=== PATIENT | female | born 1955 | race Caucasian/White ===

== ENCOUNTER → 2017-04-25 | Outpatient (CLI) | payer BC ==
--- NOTE | 2017-04-25 12:46 | MAMMOGRAPHY REPORT ---
BILATERAL DIGITAL SCREENING MAMMOGRAM WITH CAD: 04/25/2017 CLINICAL HISTORY: Routine screening. Patient has no complaints. TECHNIQUE: Current study was also evaluated with a Computer Aided Detection (CAD) system. Bilateral CC and MLO views were obtained. COMPARISON: Comparison is made to exams dated: 04/19/2016 mammogram, 04/14/2015 mammogram, 04/08/2014 m ammogram, 04/01/2013 mammogram, 03/19/2012 mammogram, and 03/15/2011 mammogram - [facility]. BREAST COMPOSITION: There are scattered areas of fibroglandular density in both breasts. FINDINGS: No suspicious masses, calcifications, or areas of architectural distortion are noted in ei ther breast. There has been no significant interval change compared to prior exams. Scattered bilater al benign-appearing calcifications are not significantly changed. IMPRESSION: ACR BI-RADS CATEGORY 2: BENIGN There is no mammographic evidence of malignancy. A 1 year screening mammogram is recommended. The pa tient will receive written notification of the results. Approximately 10% of breast cancers are not detected with mammography. A negative mammographic report should not delay biopsy if a clinically suggestive mass is present. Adela Xiong M.D. ah/:04/25/2017 12:20:07 Farm Equipment Maintenance Supervisor: Jessica MCDANIELS(Jim)(M), [facility] letter sent: Normal 1/2 BI-RADS Code: ACR BI-RADS Category 2: Benign
== END | disposition home or self-care (01) ==
LOC: C.MAMM 09:23
PROVIDERS: ATTEND Family Medicine
DX: Z12.31 Encounter for screening mammogram for malignant neoplasm of breast (principal)

== ENCOUNTER 2023-05-29 10:40 | Observation (INO) ==
--- NOTE | 2023-05-09 12:27 | PAT Medication Instructions ---
Medication Instructions Date of Service May 09, 2023 Home Medications calcium carbonate 600 mg-vitamin D3 10 mcg (400 unit) tablet (Calcium 600 + D(3)) 1 tab PO QAM cholecalciferol (vitamin D3) 25 mcg (1,000 unit) tablet (Vitamin D3) 25 mcg PO QAM diclofenac sodium 1 % topical gel 2 g topical QID PRN Pain famotidine 20 mg tablet 20 mg PO QAM hydrochlorothiazide 25 mg tablet 25 mg PO QAM losartan 25 mg tablet 25 mg PO QAM zriwjaejqvzh-smyifyjp-jraalro-folic acid 400 mcg-vit K1 20 mcg tablet (Women's 50 Plus Advanced) 1 tab PO QAM pantoprazole 40 mg tablet,delayed release 40 mg PO DAILY PRN Acid Reflux STOP taking 24 hours before surgery diclofenac sodium 1 % topical gel 2 g topical QID PRN Pain DO NOT take the morning of surgery calcium carbonate 600 mg-vitamin D3 10 mcg (400 unit) tablet (Calcium 600 + D(3)) 1 tab PO QAM cholecalciferol (vitamin D3) 25 mcg (1,000 unit) tablet (Vitamin D3) 25 mcg PO QAM hydrochlorothiazide 25 mg tablet 25 mg PO QAM losartan 25 mg tablet 25 mg PO QAM dopdlwajttml-troovwct-ltdorpd-folic acid 400 mcg-vit K1 20 mcg tablet (Women's 50 Plus Advanced) 1 tab PO QAM Take morning of surgery With a small sip of water, OTHERWISE NOTHING TO EAT OR DRINK AFTER MIDNIGHT: famotidine 20 mg tablet 20 mg PO QAM pantoprazole 40 mg tablet,delayed release 40 mg PO DAILY PRN Acid Reflux (if needed) Other Notes If you have any questions please call us at [phone] or [phone] or [phone] or [phone]
--- NOTE | 2023-05-10 07:47 | History & Physical Report ---
Date of Service May 10, 2023 date of surgery: 05/29/23 Procedure: Left Total Knee Arthroplasty Surgeon: Kin Petersen Assessment & Plan (1) Arthritis of knee, left: Plan: Presents for evaluation of continued left knee pain, she underwent viscosupplementation in April of last year with mild improvement. Since that time she had increased pain swelling and giving out. 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 We discussed treatment options at this point she would like to proceed with surgical intervention. Plan will be patient-matched Mari left total knee arthroplasty, we will plan on overnight stay at the hospital. We will follow-up 2 weeks after surgery sooner if she is having any issues The risks and benefits have been discussed including, but not limited to, risk of infection, nerve injury, stiffness, loss of motion, failure to improve, etc. Reasonable outcomes and options of treatment were discussed. An explanation of appropriate alternatives to the procedure that may be advantageous were discussed and their risks and benefits, as well as the risks and benefits of not proceeding with treatment. I offered to answer any additional inquiries concern ing the treatment involved. All the patient's questions were answered. The patient is agreeable, understanding of the treatment plan and alternatives, and wishes to proceed with the treatment plan. History of Present Illness Chief Complaint: left knee pain Primary Care Provider: Yajaira Hilario DO Elyse is a pleasant 67-year-old female who presented for preop evaluation prior to upcoming left total knee arthroplasty. She has had pain in his knee for many years now which is gradually worsening, she undergone previous viscosupplementation in the past with minimal improvement. She has tried oral anti-inflammatories as well as Tylenol without relief. This point time her pain is now affecting her daily activities including walks and using stairs. X-rays show advanced degenerative changes to the left knee. At this point time is failed conservative measures and wishes to proceed with a left total knee replacement Allergies Allergy/AdvReac Type Severity Reaction Status Date / Time lisinopril Allergy Intermediate Cough Verified 05/06/23 08:02 Home Medications Medication Instructions Recorded Confirmed Type calcium carbonate 600 mg-vitamin 1 tab PO QAM 05/06/23 05/06/23 History D3 10 mcg (400 unit) tablet (Calcium 600 + D(3)) cholecalciferol (vitamin D3) 25 25 mcg PO QAM 05/06/23 05/06/23 History mcg (1,000 unit) tablet (Vitamin D3) diclofenac sodium 1 % topical gel 2 g topical QID PRN Pain 05/06/23 05/06/23 History famotidine 20 mg tablet 20 mg PO QAM 05/06/23 05/06/23 History hydrochlorothiazide 25 mg tablet 25 mg PO QAM 05/06/23 05/06/23 History losartan 25 mg tablet 25 mg PO QAM 05/06/23 05/06/23 History dmouvjbtztvw-rbkfwylf-lpysetd-folic 1 tab PO QAM 05/06/23 05/06/23 History acid 400 mcg-vit K1 20 mcg tablet (Women's 50 Plus Advanced) pantoprazole 40 mg tablet,delayed 40 mg PO DAILY PRN Acid Reflux 05/06/23 05/06/23 History release Past Med/Surg History Medical History Arthritis GERD (gastroesophageal reflux disease) Hiatal hernia Hypertension Lower back pain trouble laying flat for long periods of time Surgical History H/O bilateral oophorectomy History of colonoscopy with polypectomy History of esophagogastroduodenoscopy (EGD) History of hysterectomy [place] teeth extracted Family History Father Diabetes Colon cancer Sister Diabetes Social History Smoking Status: Never smoker Second Hand Exposure: No; Do You Dip or Chew Tobacco: No; Tobacco Cessation Education Requested by Patient: No Hx Alcohol Use: No Hx Substance Use: No Preferred Language: Northern Irish Communication Ability: Effective Char Dust Cleaner And Salvager Required: No Beliefs That Will Affect Care: None Current Living Situation: Spouse and Family Other Information That Helps Us Care for You: No Feels Safe at Home: Yes Safety Concerns: Feels Safe At This Time Assistive Devices: Glasses Review of Systems Review of Systems: All systems reviewed & are unremarkable except as noted in HPI & below Constitutional: no fever, no chills and no sweats Respiratory: no cough and no dyspnea Cardiovascular: no chest pain, no dyspnea and no orthopnea Gastrointestinal: no abdominal pain, no nausea and no vomiting Musculoskeletal: as per Subjective / HPI Physical Exam Physical Exam: HT: 5ft WT: 79.38kg Constitutional: WD/WN, vitals as above no acute distress Respiratory: normal respiratory effort, lungs clear to auscultation no respiratory distress, no labored breathing and does not use accessory muscles Cardiovascular: RRR, no murmur, no edema Gastrointestinal (Abdomen): normal bowel sounds, soft, nontender, no hepatosplenomegaly Musculoskeletal: Knee: + knee abnormal to inspection (LEFT KNEE), + effusion (+1 effusion), + limited ROM of knee (ROM 0/3/110), + knee ROM with crepitation, + joint line tenderness (medial joint line) and + Jadyn's sign positive; no deformity, no skin erythema, no ecchymosis, no valgus laxity, no varus laxity, anterior drawer test negative, Ramiro's sign negative and pivot shift test negative Results & Data Results & Data Diagnostic Findings 4 views left knee show advanced degenerative changes to the left knee greatest medial compartment and patellofemoral joint with joint space narrowing osteophyte formation. AVN noted at the medial femoral condyle
--- NOTE | 2023-05-15 09:21 | Anesthesiology Consultation ---
Date of Service May 15, 2023 Assessment & Plan (1) Encounter for pre-operative examination: Chart Review Chart Review: Acceptable Risk for Surgery and Patient seen in Pre Admission Testing Pt currently scheduled as 23 hours observation. If surgeon decides to change patient to Same Day Joint, patient would be acceptable risk for TKA, pending patient is motivated, has good support and surgeon's office completes Same Day Joint Program preop requirements. Per PAT appt on 05/15/23, no recent Covid exposures, Covid related symptoms, or recent Covid positive tests. Will leave to surgeon's discretion if preop Covid testing needed Teaching & Discussion Pre-Anesthesia Teaching/Discussion Notes: Instructed NPO after midnight before surgery,except medications with 15 cc of water. Medication instructions provided according to the PAT guidelines. History Surgery Operation Date: 05/29/23 07:15 Proposed Procedures p Left Total Knee Arthroplasty - Kin Petersen DO Height/Weight Height: 5 ft Weight: 79.3 kg Allergies Allergy/AdvReac Type Severity Reaction Status Date / Time lisinopril Allergy Intermediate Cough Verified 05/06/23 08:02 Medications Home Medications Medication Instructions Recorded Confirmed Last Taken calcium carbonate 600 mg-vitamin 1 tab PO QAM 05/06/23 05/06/23 Unknown D3 10 mcg (400 unit) tablet (Calcium 600 + D(3)) cholecalciferol (vitamin D3) 25 25 mcg PO QAM 05/06/23 05/06/23 Unknown mcg (1,000 unit) tablet (Vitamin D3) diclofenac sodium 1 % topical gel 2 g topical QID PRN Pain 05/06/23 05/06/23 Unknown famotidine 20 mg tablet 20 mg PO QAM 05/06/23 05/06/23 Unknown hydrochlorothiazide 25 mg tablet 25 mg PO QAM 05/06/23 05/06/23 Unknown losartan 25 mg tablet 25 mg PO QAM 05/06/23 05/06/23 Unknown hxcxcqpatbgw-gtpmsxpw-umlcfzj-folic 1 tab PO QAM 05/06/23 05/06/23 Unknown acid 400 mcg-vit K1 20 mcg tablet (Women's 50 Plus Advanced) pantoprazole 40 mg tablet,delayed 40 mg PO DAILY PRN Acid Reflux 05/06/23 05/06/23 Unknown release Past Medical History Medical History (Updated 05/15/23 @ 14:28 by Faye Dalton PA-C) Arthritis GERD (gastroesophageal reflux disease) Well controlled and stable with meds Hiatal hernia Hypertension Lower back pain trouble laying flat for long periods of time Prediabetes Hgb A1C 6.1 on 05/15/23 Exercise / Class Metabolic Activity II 4-5 Yardwork/Stairs/Walk up hill (one flight of stairs - no chest pain or SOB ) Past Family History Family History Father Diabetes Colon cancer Sister Diabetes Past Surgical History Surgical History H/O bilateral oophorectomy History of colonoscopy with polypectomy History of esophagogastroduodenoscopy (EGD) History of hysterectomy [place] teeth extracted Past Anesthesia History No Hx of Anesthesia Complications and No Family Hx of Anesthesia Complications History of PONV No Hx of PONV and No Hx of Motion Sickness Social History Smoking Status: Never smoker Do You Dip or Chew Tobacco: No Hx Alcohol Use: No Hx Substance Use: No substance use type: does not use Review of Systems - Hx of snoring- no witnessed apnea - no sleep study Patient denies chest pain, shortness of breath, dyspnea on exertion, cough, wheezing, palpitations. No hx of seizures, stroke, [place]. No hx of blood clots or blood transfusions Physical Exam Vital Signs VITALS BP 155/84 P 81 TEMP 98.3 SP02 99% RES 16P Constitutional no acute distress ENMT Mouth: no TMJ clicking Thyromental Distance: > or= 3.5 Finger Breadths (3.5) Mallampati Class: I [place] to right front tooth Neck + short neck; neck extension not limited Respiratory normal respiratory effort; no respiratory distress Auscultation: lungs clear to auscultation bilaterally; no wheezes Cardiovascular Rate/Rhythm: regular rate and regular rhythm Heart Sounds: no murmur Vessels: no carotid bruit Musculoskeletal Spine: no pain with cervical ROM Extremities: extremities normal to inspection Psychiatric Orientation: alert Lab Results Anesthesia Preop Results Results Anesthesia Widget: WBC 7.54 K/ul (4.8-10.8) 05/15/23 Hgb 14.4 g/dl (12.0-16.0) 05/15/23 Hct 42.3 % (37.0-47.0) 05/15/23 Plt 282 K/uL (130-400) 05/15/23 Na 142 mmol/L (136-145) 05/15/23 K 4.1 mmol/L (3.5-5.1) 05/15/23 Cl 103 mmol/L (98-107) 05/15/23 CO2 30 mmol/L (21-32) 05/15/23 BUN 16 mg/dl (6-23) 05/15/23 Creat 0.66 mg/dl (0.6-1.2) 05/15/23 Glucose Level 99 mg/dl (70-99(Fasting)) 05/15/23 PT 10.3 Seconds (9.0-12.0) 05/15/23 PTT 27.5 Seconds (21.0-31.0) 05/15/23 INR 0.9 (0.9-1.1) 05/15/23 HA1c 6.1 % (4.5-5.6) H 05/15/23 Urine Color Yellow 05/15/23 Urine Appearance Clear (Clear) 05/15/23 Urine pH 8.0 (4.5-7.5) H 05/15/23 Urine Specific [place] 1.011 (1.000-1.030) 05/15/23 Urine Protein Negative (Negative) 05/15/23 Urine Glucose (UA) Negative (Negative) 05/15/23 Urine Ketones Negative (Negative) 05/15/23 Urine Blood Negative (Negative) 05/15/23 Urine Nitrite Negative (Negative) 05/15/23 Urine Bilirubin Negative (Negative) 05/15/23 Urine Urobilinogen Negative (Negative) 05/15/23 Urine Leukocyte Esterase Negative (Negative) 05/15/23 Blood Type O Negative 05/15/23 Antibody Screen NEGATIVE 05/15/23 Testing Electrocardiogram Date: 05/15/23 Findings: + NSR @ (75bpm ) and + no change from (Aug 09, 2004 per cardio ) Possible left atrial enlargement Chest X-Ray Date: 05/15/23 FINDINGS: No lines and tubes are seen. Calcified aortic knob is seen. The lungs are clear. No evidence of pleural effusion or pneumothorax. Degenerative changes are seen in the spine. IMPRESSION: No acute chest disease. Echocardiogram Date: 06/26/19 EF: 55-59% LV Function: normal RWMA: + none Other Findings: + diastolic dysfunction (Grade I ); no LVH Valvular Disease: + no significant valvular disease
[~2023-05-29 10:40] MED LIST: ACETAMINOPHEN 500 MG TAB PO SCH; BUPIVACAINE 0.25% PF 30 ML VIAL ONE; BUPIVACAINE 0.5 % 5 MG/1 ML PF 10ML VIAL ONE; CeleBREX 200 MG CAP PO SCH; FAMOTIDINE 20 MG TAB PO SCH; GABAPENTIN 300 MG CAP PO SCH; LR 500ML BOLUS, THEN 15ML/HR IV SCH; LR 60ML/HR IV SCH; METOCLOPRAMIDE HCL 10 MG TABLET PO SCH; ROPIVACAINE 0.5% HCL/PF 150 MG, BUPIVACAINE 0.75% MPF 20 ML, EPINEPHrine 30MG/30ML (OR ... INSTIL SCH; TRANEXAMIC ACID 1,000 MG **IV Intra-op IV SCH; TRANEXAMIC ACID 1,000 MG **IV Pre-op IV SCH; ceFAZolin 2000MG 2,000 MG/15 ML SYR IV SCH; dexAMETHasone 4 MG TAB PO SCH
--- NOTE | 2023-05-29 11:08 | History & Physical Bridge Note ---
Date of Service May 29, 2023 History & Physical Bridge Note I have examined the patient, reviewed the History & Physical and in the interval since the performance of the History & Physical I have noted the following changes of clinical significance: no changes noted
[2023-05-29] MEDS ORDERED: ORTHO JOINT ANESTHETIC ONE (13:04)
[2023-05-29] MEDS ORDERED: MIDAZOLAM HCL 1 MG/ML 2ML VIAL ONE ×2 (13:08)
[2023-05-29] MEDS ORDERED: ONDANSETRON INJ 2 MG/ML 2 ML VIAL ONE (13:46)
[2023-05-29] MEDS ORDERED: PROPOFOL IV EMULSION 10 MG/ML 20 ML VIAL IV ONE (13:46)
[2023-05-29] MEDS ORDERED: ePHEDrine sulfate 50 MG/ML AMP ONE (14:33)
--- NOTE | 2023-05-29 14:38 | Operative Report ---
Post Operative Report Pre & Post Diagnosis Operation Date: 05/29/23 12:15 Pre-Op Diagnosis: Left Knee Osteoarthritis Post-Op Diagnosis: Left Knee Osteoarthritis I identified the patient and participated in the time-out.: Yes Procedure Operation Date: 05/29/23 12:15 Actual Procedures p Left Total Knee Arthroplasty(Left)Utilizing Mari [employer] persona patient- matched total knee arthroplasty size femur 5 standard tibia C poly 10 mm patella 28 oval - Kin Petersen DO Surgeon Kin Petersen DO Farm Service Adviser Arnaud PALOMO Estimated Blood Loss 5 Findings Consistent with Post-Op Diagnosis Patient presents with severe end-stage tricompartmental DJD eburnated ohfu-ls-nbsf marginal osteophytes subchondral sclerosis with a large effusion Specimens Bone and cartilage Drains Medium bore Hemovac Anesthesia Type MAC Spinal Regional Complications none Disposition Accompanied Patient To Recovery: No Disposition: Recovery Room Indications Patient presents with severe end-stage tricompartmental DJD is failed attempted conservative management occluding physical therapy anti-inflammatories relative rest activity modification corticosteroid injection viscosupplementation Description of Procedure After proper prepping and draping of the left lower extremity anterior midline incision was made over the region of the extensor extensor mechanism after meticulous hemostasis was obtained and maintained in subcutaneous tissues a medial parapatellar incision was made The patella was subluxed lateralward the medial lateral gutter were cleaned from any hypertrophic synovitis and scar tissue of the distal femoral block was placed and the distal femoral osteotomy cut was made subsequently the chamfers anterior and posterior osteotomy cuts were made utilizing the 4-in-1 block the tibia was subsequently subluxed anteriorward medial and ateral meniscal remnants were excised in their entirety remnants of the anterior and posterior cruciate ligaments were excised in their entirety excellent exposure of the proximal tibia was obtained the tibial osteotomy guide was placed on the proximal tibial osteotomy cut was made once again the knee was irrigated with copious amounts of sterile saline solution the patella was subsequently everted lateralward thickened scar tissue around the patella was removed the patella was subsequently cut utilizing a freehand technique and was drilled prepared for final preparation and placement of patella socially flexion-extension gaps were checked and the equal and symmetric trials were placed to the appropriate femoral and tibial trials with poly-spacer being placed for equal flexion and extension gaps and full range of motion including extension to 0 and flexion to 140 the trial components after having been taken to recovery range of motion was subsequently removed meticulous hemostasis was obtained and maintained subsequently a knee block injection of joint cocktail including ropivacaine 0.5% 150 mg. Bupivacaine 0.5% epinephrine 1-200,030 mL's toradol 30 mg dexamethasone 4 mg ketamine 10 mg clonidine 100 micrograms normal saline solution 30 mg was infiltrated into the soft tissues of the posterior knee medial lateral gutters and periosteal synovium special attention was paid to protect neurovascular structures at all times subsequently trial components having been removed the knee was irrigated with sterile saline solution. debris was removed the proximal tibia was subsequently prepared and was made ready for the placement of the tibial component tibial component was also cemented and tamped into position the femoral component was subsequently placed and cemented in the position the patellar component was subsequently su ented in position because hemostasis once again obtained and maintained wound having been thoroughly irrigated with debridement and debridement lavage was performed as well as a medial parapatellar incision closed with #1 Vicryl in interrupted fashion subcutaneous was closed with #2 Vicryl skin was closed with skin clips. PA-C was necessary for prepping and drapping as well as wound closure of deep fascia Sub cutaneous tissue and skin and was necessary for the case. A sterile compressive dressing was placed patient was taken to recovery in stable condition of report dictated by Nicola I attest to the content of the Intraoperative Record and any orders documented therein. Any exceptions are noted below.Due to the complex nature of the procedure, the entire surgery was performed with the operational assistance of Arnaud PALOMO. The assistant womens volleyball coach, under direct supervision, was involved in the actual performance of all aspects of the surgical procedure including hemostasis, tissue retraction and incision, instrument management, patient positioning, and wound closure. I attest to the content of the Intraoperative Record and any orders documented therein. Any exceptions are noted below.
--- NOTE | 2023-05-29 15:29 | Anesthesiology Progress Note ---
Date of Service May 29, 2023 Anesthesia Post Procedure Vital Signs Vital Signs: Temp Pulse Resp BP Pulse Ox O2 Del Method 05/29/23 11:00 36.8 C 92 H 20 132/75 95 Room Air Transfer of Care Handoff Completed per policy Notes Mental Status: alert / awake / arousable and participated in evaluation Patient Amnestic to Procedure: Yes Nausea / Vomiting: adequately controlled Pain: adequately controlled Airway Patency, RR, SpO2: stable & adequate BP & HR: stable & adequate Hydration State: stable & adequate Neuraxial Anesthesia: was administered and sensory block is resolving Anesthetic Complications: no major complications apparent and Pt Satisfied with anesthetic care
--- NOTE | 2023-05-29 15:55 | XRay Report ---
LEFT KNEE 2 VIEWS History: Left total knee arthroplasty. Degenerative arthritis. Postop. FINDINGS: The patient is status post a left total knee arthroplasty. The hardware is intact. No fract ure or dislocation. Surgical drains are in place. IMPRESSION: Left total knee arthroplasty. No evidence for hardware complication. ACT 112: Negative or not required by law. Electronically signed by: Joshua Yates M.D. 05/29/2023 3:54 PM
[2023-05-29] MEDS ORDERED: ONDANSETRON INJ 2 MG/ML 2 ML VIAL IV PRN (16:13)
[2023-05-29] MEDS ORDERED: PANTOprazole 40 MG TAB PO PRN (16:13)
[2023-05-29] MEDS ORDERED: bisacodyL 10 MG SUPP PR PRN (16:13)
[2023-05-29] MEDS ORDERED: MAGNESIUM HYDROXIDE SUSP 30 ML UDC PO PRN (16:13)
[2023-05-29] MEDS ORDERED: diphenhydrAMINE 50 MG/ML VIAL IV PRN (16:13)
[2023-05-29] MEDS ORDERED: oxyCODONE HCL IR 5 MG TAB (IMMEDIATE RELEASE) PO PRN (16:13)
[2023-05-29] MEDS ORDERED: NALOXONE HCL 0.4 MG/1 ML VIAL/CARP IV PRN (16:13)
[2023-05-29] MEDS: SODIUM CHLORIDE 0.9% 1,000 ML IV SCH (17:46)
[2023-05-29] MEDS: ceFAZolin 2000MG 2,000 MG/15 ML SYR IV SCH (20:48)
[2023-05-29] MEDS: ASPIRIN 81 MG ECTAB PO SCH (20:49)
[2023-05-29] MEDS: DOCUSATE SODIUM 100 MG CAP PO SCH (20:49)
[2023-05-29] MEDS: ACETAMINOPHEN 500 MG TAB PO SCH (20:49)
[2023-05-29] MEDS ORDERED: SENNA 8.6 MG TAB PO SCH (21:00)
[2023-05-30] MEDS: SODIUM CHLORIDE 0.9% 1,000 ML IV SCH (03:49)
[2023-05-30] MEDS: ACETAMINOPHEN 500 MG TAB PO SCH ×2 (05:38→14:31)
[2023-05-30] MEDS: ceFAZolin 2000MG 2,000 MG/15 ML SYR IV SCH (05:38)
[2023-05-30 07:09] LABS: Hematocrit (blood only) 35.6 % (37.0-47.0); Mean Corpuscular Hemoglobin 28.3 pg (25.0-34.0); Mean Corpuscular Hgb Conc 33.7 g/dL (32.0-36.0); Mean Platelet Volume 9.1 fL (9.4-12.4); Platelet Count 248 K/uL (130-400); RDW Coefficient of Variation 13.1 % (11.5-14.5); RDW Standard Deviation 39.8 fL (36.4-46.3); Red Blood Count 4.24 M/uL (4.20-5.40); White Blood Count 14.75 K/ul (4.8-10.8)
[2023-05-30 07:35] LABS: BUN Creatinine Ratio 18.3 (10-20); Calcium 8.4 mg/dl (8.6-10.3); Creatinine Clr Calc Pharmacy 68.4 ml/min; Est GFR (Non-African American) 86.3 ml/min; Potassium 3.9 mmol/L (3.5-5.1)
[2023-05-30] MEDS: ASPIRIN 81 MG ECTAB PO SCH (08:07)
[2023-05-30] MEDS: DOCUSATE SODIUM 100 MG CAP PO SCH (08:07)
--- NOTE | 2023-05-30 08:21 | Orthopedic Progress Note ---
Date of Service May 30, 2023 Assessment & Plan (1) Status post left knee replacement: Plan: 68 yo female stable POD #1 s/p left TKA 1. Med management 2. DVT prophylaxis- ASA, SCDs 3. PT/OT 4. D/C planning- home w/ HH Admission and Anticipated Discharge Date Admission Date: May 29, 2023 Subjective Pt resting in bed, denies complaints, pain controlled Physical Exam Physical Exam: Dressing in place, hemovac and TERRA in place, toes mobile, NVI Results & Data Vital Signs (Past 12 Hours) Vital Signs Temp Pulse Resp BP BP Pulse Ox O2 Del Method 05/30/23 07:32 36.6 C 63 16 118/73 95 Room Air 05/30/23 03:10 36.4 C L 61 16 112/65 96 Room Air 05/29/23 23:00 36.4 C L 65 16 110/65 98 Room Air Laboratory Results 05/30/23 05/30/23 Range/Units 06:39 06:39 WBC 14.75 H (4.8-10.8) K/ul RBC 4.24 (4.20-5.40) M/uL Hgb 12.0 (12.0-16.0) g/dl Hct 35.6 L (37.0-47.0) % MCV 84.0 (80.0-100.0) fL MCH 28.3 (25.0-34.0) pg MCHC 33.7 (32.0-36.0) g/dL RDW Std Deviation 39.8 (36.4-46.3) fL RDW Coeff of Edith 13.1 (11.5-14.5) % Plt Count 248 (130-400) K/uL MPV 9.1 L (9.4-12.4) fL Sodium 138 (136-145) mmol/L Potassium 3.9 (3.5-5.1) mmol/L Chloride 105 (98-107) mmol/L Carbon Dioxide 27 (21-32) mmol/L Anion Gap 6 (3-11) BUN 13 (6-23) mg/dl Creatinine 0.71 (0.6-1.2) mg/dl Est Cr Clr Drug Dosing 68.4 ml/min Est GFR ( Amer) 100.0 ml/min Est GFR (Non-Af Amer) 86.3 ml/min BUN/Creatinine Ratio 18.3 (10-20) Glucose 124 H (70-99(Fasting)) mg/dl Calcium 8.4 L (8.6-10.3) mg/dl
[2023-05-30] MEDS ORDERED: MULTIVITAMIN TAB PO SCH (09:00)
[2023-05-30] MEDS ORDERED: CHOLECALCIFEROL 1,000 UNITS 25 MCG TAB PO SCH (09:00)
[2023-05-30] MEDS ORDERED: LOSARTAN POTASSIUM 25 MG TAB PO SCH (09:00)
[2023-05-30] MEDS ORDERED: hydroCHLOROthiazide 25 MG TAB PO SCH (09:00)
--- NOTE | 2023-06-01 10:11 | Discharge Summary ---
Date of Service June 01, 2023 Admission HPI Per Admitting Provider Elyse is a pleasant 67-year-old female who presented for preop evaluation prior to upcoming left total knee arthroplasty. She has had pain in his knee for many years now which is gradually worsening, she undergone previous viscosupplementation in the past with minimal improvement. She has tried oral anti-inflammatories as well as Tylenol without relief. This point time her pain is now affecting her daily activities including walks and using stairs. X-rays show advanced degenerative changes to the left knee. At this point time is failed conservative measures and wishes to proceed with a left total knee re placement Admission Exam Per Admitting Provider Physical Exam: HT: 5ft WT: 79.38kg Constitutional: WD/WN, vitals as above no acute distress Respiratory: normal respiratory effort, lungs clear to auscultation no respiratory distress, no labored breathing and does not use accessory muscles Cardiovascular: RRR, no murmur, no edema Gastrointestinal (Abdomen): normal bowel sounds, soft, nontender, no hepatosplenomegaly Musculoskeletal: Knee: + knee abnormal to inspection (LEFT KNEE), + effusion (+1 effusion), + limited ROM of knee (ROM 0/3/110), + knee ROM with crepitation, + joint line tenderness (medial joint line) and + Jadyn's sign positive; no deformity, no skin erythema, no ecchymosis, no valgus laxity, no varus laxity, anterior drawer test negative, Ramiro's sign negative and pivot shift test negative Principal Diagnosis Left knee osteoarthritis Discharge Data Allergies Allergy/AdvReac Type Severity Reaction Status Date / Time lisinopril Allergy Intermediate Cough Verified 05/29/23 11:02 Procedures Performed Operation Date: 05/29/23 12:15 Actual Procedures p Left Total Knee Arthroplasty(Left) - Kin Petersen DO Ordered Studies 05/29/23 05:00 US - OR guided needle placemen Routine Hospital Course (1) Status post left knee replacement: Patient:ELYSE CHAVEZ Admit Date:05/29/23 MR#:[id number] Att Phy:Kin Petersen,AlinaOMarcelino Acct ID:[id number] Leni Phy:Yajaira Hilario DO Date:1955 Fam Phy: Age:68 Location:3W Sex:F Room/Bed:[facility] cc: ~ *NOTICE TO RECEIVING REPUBLICAN/AGENCY This information is strictly Confidential and protected under [place] law. [place] law prohibits you from making any further disclosure of this information unless further disclosure is expressly permitted by the written consent of the person to whom it pertains or is authorized by law. A general authorization for the release of medical or other information is not sufficient for this purpose. Hospital accepts no responsibility if the information is made available to any other person, INCLUDING THE PATIENT. Date of Service May 30, 2023 Assessment & Plan (1) Status post left knee replacement: Plan: 68 yo female stable POD #1 s/p left TKA 1. Med management 2. DVT prophylaxis- ASA, SCDs 3. PT/OT 4. D/C planning- home w/ HH Admission and Anticipated Discharge Date Admission Date: May 29, 2023 Subjective Pt resting in bed, denies complaints, pain controlled Physical Exam Physical Exam: Dressing in place, hemovac and TERRA in place, toes mobile, NVI Results & Data Vital Signs (Past 12 Hours) Vital Signs Temp Pulse Resp BP BP Pulse Ox O2 Del Method 05/30/23 07:32 36.6 C 63 16 118/73 95 Room Air 05/30/23 03:10 36.4 C L 61 16 112/65 96 Room Air 05/29/23 23:00 36.4 C L 65 16 110/65 98 Room Air Laboratory Results 05/30/23 05/30/23 Range/Units 06:39 06:39 WBC 14.75 H (4.8-10.8) K/ul RBC 4.24 (4.20-5.40) M/uL Hgb 12.0 (12.0-16.0) g/dl Hct 35.6 L (37.0-47.0) % MCV 84.0 (80.0-100.0) fL MCH 28.3 (25.0-34.0) pg MCHC 33.7 (32.0-36.0) g/dL RDW Std Deviation 39.8 (36.4-46.3) fL RDW Coeff of Edith 13.1 (11.5-14.5) % Plt Count 248 (130-400) K/uL MPV 9.1 L (9.4-12.4) fL Sodium 138 (136-145) mmol/L Potassium 3.9 (3.5-5.1) mmol/L Chloride 105 (98-107) mmol/L Carbon Dioxide 27 (21-32) mmol/L Anion Gap 6 (3-11) BUN 13 (6-23) mg/dl Creatinine 0.71 (0.6-1.2) mg/dl Est Cr Clr Drug Dosing 68.4 ml/min Est GFR ( Amer) 100.0 ml/min Est GFR (Non-Af Amer) 86.3 ml/min BUN/Creatinine Ratio 18.3 (10-20) Glucose 124 H (70-99(Fasting)) mg/dl Calcium 8.4 L (8.6-10.3) mg/dl Signed By: <Electronically signed by Nikhil Gibson > 05/30/23 0821 <Electronically signed by Dwight Ba M.D.> 05/30/23 1516 Created:05/30/23 0819 Total Time Total Time Spent Total Time Spent (In Minutes): 5 Discharge Plan Discharge Items Patient Disposition: Home - Home Health Services Reason For Visit: Left Knee Osteoarthritis Discharge Diagnosis: Left Knee Osteoarthritis Activity: Per Instructions section Weightbearing Comment: as tolerated with walker Non-emergency contact: Surgeon Call non-emergency contact if: you have any medication questions, your pain is not controlled, your temperature is above 101.5, your wound has increased redness and your wound has increased drainage Follow-up/Referrals: Kin Petersen DO [Surgeon] - (Follow up with Dr Petersen in 2 weeks from the day of your surgery for your first post operative visit) Yajaira Hilario DO [Primary Care Provider] - Diet: Regular Addtl Attending Provider Instructions: ACTIVITY RECOMMENDATIONS: SELF CARE INSTRUCTIONS AFTER TOTAL KNEE REPLACEMENT A. You may need to continue a physical therapy program after discharge from the hospital. There are several options available to you. Your doctor will assist you in selecting the best one for you. 1. An out-patient facility 2 to 3 times a week for therapy or home therapy. 2. Continue working on all exercises taught to you in the hospital. Your goals should be to increase bending of your knee to 90 degrees and beyond and to fully straighten your knee. B. You may progress at your own pace from walking with a walker or crutches to a cane; then to no assistive devices. C. Make walking a part of your daily routine. Be up as much as comfortable with rest periods throughout the day. Rest with leg elevation is very important. Use the ice wrap frequently for the first 3-4 weeks. D. There are no restrictions on activities. You may ride in a car, shop, participate in cad intern and all social activities. E. Wear the long elastic stockings (ROLANDO hose) 20 hours a day for 2 weeks after surgery. They can be removed several times a day for laundering and for a bath. F. You may shower, no tub baths until cleared by your doctor. SPECIAL CARE INSTRUCTIONS: VERY IMPORTANT TO READ AND REVIEW A. There are a few signs you need to watch for after you are home. Call [facility] if you notice any of the followin. Increased severe knee pain. Some pain is expected especially when you exercise. 2. Increased swelling in your leg or knee; pain or swelling of the calf muscle in either lower leg. 3. Any fluid drainage from the incision. 4. Shortness of breath or chest pain. B. Please call [facility] at if you have any concerns or questions about your operation or recovery. The doctor or his nurse will return your call promptly. C. You must take antibiotics before dental work, bladder, bowel or other surgery. Your doctor will provide you with a permanent care to carry describing this precaution. IMPORTANT: * REMEMBER TO TAKE ASPIRIN, 81 MG, TWICE DAILY FOR 4 WEEKS UNLESS OTHERWISE DIRECTED. THIS IS YOUR BLOOD THINNER. * HIGH RISK PATIENTS MAY BE PRESCRIBED A STRONGER BLOOD THINNER. THIS WILL BE PROVIDED AT DISCHARGE. * CALL IF INCREASED PAIN, REDNESS, DRAINAGE OR FEVER GREATER THAT 101. * WEAR ROLANDO HOSE 20 HOURS PER DAY FOR 2 WEEKS. * Prevena- This is a large suction dressing covering your incision. This will help pull any excess drainage from the wound and allow your incision to heal properly. You may shower with this if you can keep the unit outside of the shower. If any bleeding or leakage is noted please call your doctor's office. This will remain on your incision for 7 days and then should be removed. This can be done yourself or by the home nursing staff if applicable. The entire unit is disposable once removed. Once removed, keep incision clean and dry. If redness or drainage is noted, please call your surgeon. . FOLLOW UP VISIT: If appointment is not already scheduled: Please call [facility] to make a follow-up appointment for 2 weeks after your surgery at . Pending Studies at Discharge: No Stand-Alone Forms: [facility], Smoking Cessation Medications and DC Order Prescriptions: New polyethylene glycol 3350 [Miralax] 17 gram powder in packet 17 g PO DAILY PRN (Reason: constipation) Qty: 5 0RF aspirin [Ecotrin Low Strength] 81 mg tablet,delayed release (DR/EC) 81 mg PO BID 30 Days Qty: 60 0RF cefadroxil 500 mg capsule 500 mg PO BID Qty: 28 1RF acetaminophen 500 mg capsule 1,000 mg PO Q8H 14 Days Qty: 84 0RF oxycodone 5 mg tablet 5 - 10 mg PO Q6H PRN (Reason: pain) Qty: 18 0RF Rx Instructions: Max 6 tablets daily Continued famotidine 20 mg Tablet 20 mg PO QAM pantoprazole 40 mg Tablet,Delayed Release (Dr/Ec) 40 mg PO DAILY PRN (Reason: Acid Reflux) losartan 25 mg Tablet 25 mg PO QAM hydrochlorothiazide 25 mg Tablet 25 mg PO QAM cholecalciferol (vitamin D3) [Vitamin D3] 25 mcg (1,000 unit) Tablet 25 mcg PO QAM calcium carbonate-vitamin D3 [Calcium 600 + D(3)] 600 mg-10 mcg (400 unit) Tablet 1 tab PO QAM Women's 50 Plus Advanced 400-20 mcg Tablet 1 tab PO QAM diclofenac sodium 1 % Gel 2 g TOPICAL QID PRN (Reason: Pain) Rx Instructions: apply to single elbow, wrist or hand; for hand includes palm/fingers/back of hand Admission Data Admit Date/Time: 05/29/23 15:21 Attending Provider: Kin Petersen Admit Provider: Kin Petersen Primary Care Provider: Yajaira Hilario Other Providers: [facility],Home Health ; [place],Home Care Other Interventions: Discharge Summary Assessment (RN) Last Done: 05/30/23 13:59
== END 2023-05-30 14:56 | disposition home health service (06) ==
LOC: ASU 10:40 → 3W 10:40